=== PATIENT | male | born 1965 | race Caucasian/White ===

== ENCOUNTER 2018-10-08 10:56 | Day surgery (SDC) | payer MEDICARE, OTHER ==
[~2018-10-08 10:56] MED LIST: CEFAZOLIN 1 GM/D5W RTU 1 GM/50 ML RTUPB IV PRN; FENTANYL CITRATE INJ/PF 100 MCG/2 ML AMPUL ONE; LACTATED RINGERS 1000 ML IV PRN; LIDOCAINE 0.5% INJ-PF (5 MG/ML) 50 ML SDV SUBCUT PRN; MIDAZOLAM 2 MG/2 ML INJ ONE; PROPOFOL INJ 200 MG/20 ML VIAL IV ONE
[2018-10-08] MEDS ORDERED: CEFAZOLIN 1 GM/D5W RTU 1 GM/50 ML RTUPB IV ONE (11:23)
[2018-10-08] MEDS ORDERED: BUPIVACAINE HCL 0.5%-EPI 1:200000 INJ/PF 30 ML VIAL ONE (11:23)
[2018-10-08] MEDS ORDERED: SODIUM BICARBONATE 4.2% INJ (2.5 MEQ/5 ML) VIAL ONE (11:23)
[2018-10-08] MEDS ORDERED: LIDOCAINE 1% INJ-PF (10 MG/ML) 30 ML SDV ONE ×2 (11:23→13:17)
[2018-10-08] MEDS ORDERED: MIDAZOLAM 2 MG/2 ML INJ ONE (12:25)
[2018-10-08] MEDS ORDERED: PROPOFOL INJ 200 MG/20 ML VIAL IV ONE ×2 (12:25→14:38)
[2018-10-08] MEDS ORDERED: FENTANYL CITRATE INJ/PF 100 MCG/2 ML AMPUL ONE (12:25)
[2018-10-08 12:33] LABS: HEMATOCRIT 39.8 % (37.9-51.0); HEMOGLOBIN 13.8 g/dL (13.5-17.0); MEAN CORPUSCULAR HEMOGLOBIN 28.9 pg (27.0-33.4); MEAN CORPUSCULAR HGB CONC 34.7 g/dL (32.0-36.0); MEAN CORPUSCULAR VOLUME 83 fl (80-97); PLATELET COUNT 212 10^3/uL (150-450); RED BLOOD COUNT 4.79 10^6/uL (4.35-5.55); RED CELL DISTRIBUTION WIDTH 13.3 % (11.5-14.0); WHITE BLOOD COUNT 5.7 10^3/uL (4.0-10.5)
[2018-10-08 12:52] LABS: ANION GAP 10 (5-19); BLOOD UREA NITROGEN 14 mg/dL (7-20); CALCIUM 9.9 mg/dL (8.4-10.2); CARBON DIOXIDE 31 mmol/L (22-30); CHLORIDE 101 mmol/L (98-107); GLUCOSE 107 mg/dL (75-110); POTASSIUM 4.5 mmol/L (3.6-5.0); SODIUM 142.3 mmol/L (137-145)
[2018-10-08] MEDS ORDERED: ONDANSETRON HCL INJ/PF 4 MG/2 ML SDV IV PRN (13:19)
[2018-10-08] MEDS ORDERED: PROMETHAZINE HCL INJ 25 MG/1 ML VIAL IV PRN ×2 (13:19)
[2018-10-08] MEDS ORDERED: MEPERIDINE HCL/PF INJ 25 MG/1 ML DISP.SYRIN IV PRN (13:19)
[2018-10-08] MEDS ORDERED: MORPHINE SULFATE 10 MG/ML INJ IV PRN (13:19)
[2018-10-08] MEDS ORDERED: FENTANYL CITRATE INJ/PF 100 MCG/2 ML AMPUL IV PRN ×3 (13:19)
[2018-10-08] MEDS ORDERED: DIPHENHYDRAMINE HCL 50 MG/ML VIAL IV PRN (13:19)
--- NOTE | 2018-10-08 14:44 | OPERATIVE REPORT E ---
Operative Report NAME: KETAN MYERS : 1965 AGE: 53Y DATE OF SURGERY: 10/08/2018 ROOM: PREOPERATIVE DIAGNOSIS: END OF LIFE INTRATHECAL PUMP. POSTOPERATIVE DIAGNOSIS: END OF LIFE INTRATHECAL PUMP. OPERATION: PUMP REPLACEMENT. SURGEON: DIRK ABARCA M.D. HANDLE ASSEMBLER: None. ANESTHESIA: MAC. COMPLICATIONS: None. PROCEDURE: After obtaining informed consent, advising the patient of the risks and benefits including serious neurologic injury, bleeding, infection, allergic reaction, and , he was taken to the operating room and was placed comfortably in the right lateral decubitus position. Comfort was assessed visually and verbally. He was prepped with chlorhexidine and draped. The intrathecal pump was readily palpable in the left upper quadrant. The previous scar was anesthetized. 1% lidocaine with bicarb followed by sharp and blunt dissection performed down to the intrathecal pump, which was readily identified. *------* for hemostasis. The *------* was removed without difficulty. A small incision was made in the scar capsule medially, superiorly, and laterally. The pump was then primed with medication from the previous pump, and the new pump was connected to the catheter. It was placed within the pocket after the incisions were made. The pocket was then cleansed and irrigated with Betadine-containing solution. The wound was then copiously irrigated with Betadine solution. It was then closed with interrupted vertical mattress sutures of 2-0 Polysorb initial layer, then a 3-0 Polysorb second layer, and the skin came together nicely. The region was then completed with christian at the surface and cleansed again following placement of dry suitable Tegaderm sponge dressing. He was then taken back to the PACU for further postoperative care and monitoring. DICTATING PHYSICIAN: DIRK ABARCA M.D. [id number] PHY#: [id number] ID: [id number] JOB#: [id number] ACCT: [id number] cc:DIRK ABARCA M.D. >
[2018-10-08] MEDS ORDERED: CEFAZOLIN INJ 1 GM VIAL ONE (14:48)
[2018-10-08] MEDS ORDERED: MORPHINE SULFATE IR 15 MG TABLET PO PRN (14:59)
[2018-10-08 15:56] VITALS: BP 151/88
--- NOTE | 2018-10-08 17:44 | EKG REPORT ---
SEVERITY:- NORMAL ECG - SINUS RHYTHM ST ELEV, PROBABLE NORMAL EARLY REPOL PATTERN : Confirmed by: Ruma Dobson MD 08-Oct-2018 17:42:19
== END 2018-10-08 15:35 | disposition home or self-care (01) ==
LOC: OROUT 10:56
PROVIDERS: ATTEND Student in an Organized Health Care Education/Training Program
DX: Z45.1 Encounter for adjustment and management of infusion pump (principal); G89.4 Chronic pain syndrome; G35 Multiple sclerosis; G06.1 Intraspinal abscess and granuloma; I10 Essential (primary) hypertension; J45.909 Unspecified asthma, uncomplicated; E11.9 Type 2 diabetes mellitus without complications; M79.2 Neuralgia and neuritis, unspecified; F45.42 Pain disorder with related psychological factors; M79.10 Myalgia, unspecified site; Z79.899 Other long term (current) drug therapy; Z79.891 Long term (current) use of opiate analgesic
CPT/HCPCS: 36415; 85027; 80048; 93005; 93010; 62361; C1772; J2250; J0690 ×2; J3010; J3490 ×2; J2704; 1936